=== PATIENT | female | born 1990 | race Caucasian/White ===

== ENCOUNTER 2016-07-20 03:01 | Inpatient (IN) | payer MEDICAID ==
[~2016-07-20] VITALS: Ht 162.6 cm; Wt 131.0 kg
[~2016-07-20 03:01] MED LIST: ALBU18; CITA10TA59; FLUT100M7; FLUT50AE2; LEVA0.31; PREN-145 OR; [UNRECOGNIZED DRUG - OTHER]
[2016-07-20] MEDS ORDERED: ALBUTEROL SULF 2.5 MG/0.5ML(0.5%) NEB SOLN NEB ONE ×2 (03:15→05:00)
[2016-07-20] MEDS ORDERED: IPRATROPIUM BROM 0.5 MG/2.5ML INH SOL NEB ONE ×2 (03:15→05:00)
[2016-07-20 04:02] LABS: Basophils # (auto) 0.1 uL; Basophils % (auto) 0.5 % (0.0-2.0); Eosinophils # (auto) 0.3 uL; Eosinophils % (auto) 2.2 % (0.0-7.0); Hematocrit 45.3 % (36.0-46.0); Hemoglobin 15.1 g/dL (12.2-16.2); Lymphocytes # (auto) 3.1 uL; Lymphocytes % (auto) 23.3 % (10.0-50.0); Mean Corpuscular Hemoglobin 28.1 pg (28.0-32.0); Mean Corpuscular Hgb Conc. 33.4 g/dL (32.0-36.0); Mean Corpuscular Volume 84.1 fL (80.0-100.0); Mean Platelet Volume 8.8 fL (7.4-10.4); Monocytes # (auto) 0.8 uL; Monocytes % (auto) 5.9 % (0.0-12.0); Neutrophils # (auto) 9.1 uL; Neutrophils % (auto) 68.1 % (37.0-80.0); Platelet Count (auto) 306 10^3/uL (140-450); Red Cell Distribution Width 14.5 % (11.6-16.0); White Blood Cell 13.3 10^3/uL (4.4-10.8)
[2016-07-20 04:19] LABS: Albumin 3.6 g/dL (3.4-5.0); BUN/Creatinine Ratio 20.8; Calcium 8.8 mg/dL (8.5-10.1); Potassium 3.4 mmol/L (3.5-5.1)
[2016-07-20 04:21] LABS: Bilirubin, Total 0.7 mg/dL (0.2-1.0); Total Protein 7.5 g/dL (6.4-8.2)
[2016-07-20 04:57] LABS: Urine Bilirubin Negative (Negative); Urine Blood Negative /uL (Negative); Urine Color Yellow (Yellow); Urine Glucose Normal (Normal); Urine Ketone Negative (Negative); Urine Mucus FEW (None Seen); Urine Nitrite Negative (Negative); Urine RBC 2 /hpf (0 - 4); Urine Squamous Epithelial Cell FEW /hpf (<5); Urine Urobilinogen Normal (Negative); Urine pH 5.5 (5.0-8.0)
[2016-07-20] MEDS ORDERED: methylPREDNISolone SOD SUCC 125 MG/2 ML VL IV ONE (05:15)
[2016-07-20] MEDS ORDERED: cefTRIAXone 1GM/50ML D5W 50 ML IV ONE (06:15)
[2016-07-20] MEDS ORDERED: ALBUTEROL SULF 2.5 MG/0.5ML(0.5%) NEB SOLN HHN ONE (07:45)
[2016-07-20] MEDS ORDERED: IPRATROPIUM BROM 0.5 MG/2.5ML INH SOL HHN ONE (07:45)
[2016-07-20] MEDS: SODIUM CHLORIDE 0.9% 1,000 ML IV SCH ×2 (08:34→20:05)
[2016-07-20] MEDS ORDERED: ACETAMINOPHEN 500 MG TAB PO PRN (08:45)
[2016-07-20] MEDS ORDERED: LORazepam 0.5 MG TAB PO PRN (08:45)
[2016-07-20] MEDS ORDERED: HYDROcodone-ACET 5/325MG TAB PO ONE (08:45)
[2016-07-20] MEDS ORDERED: PROMETHAZINE HCL 25 MG/ML 1ML IV PRN (08:45)
[2016-07-20] MEDS ORDERED: ALBUTEROL SULF 2.5 MG/0.5ML(0.5%) NEB SOLN NEB PRN (08:45)
[2016-07-20] MEDS ORDERED: NITROGLYCERIN 0.4 MG SL TAB SL PRN (08:45)
[2016-07-20] MEDS ORDERED: MORPHINE SULF INJ 2 MG/ML SYRINGE 1ML IV PRN ×2 (08:45)
[2016-07-20] MEDS ORDERED: cefTRIAXone 1GM/50ML D5W 50 ML IV SCH (09:00)
[2016-07-20 09:43] VITALS: BP 132/72
[2016-07-20] MEDS: PATIENTS OWN MEDICATION IN SCH ×2 (11:04)
[2016-07-20] MEDS: methylPREDNISolone SOD SUCC 40 MG/ML VL IV SCH ×3 (11:41→23:41)
[2016-07-20] MEDS: CITALOPRAM HYDROBR 20 MG TAB PO SCH (11:42)
[2016-07-20 13:00] VITALS: BP 141/82
[2016-07-20 17:00] VITALS: BP 147/90
[2016-07-20] MEDS ORDERED: THROAT LOZENGES(CEPASTAT) MT PRN (17:45)
[2016-07-20] MEDS: ALBUTEROL SULF 2.5 MG/0.5ML(0.5%) NEB SOLN NEB SCH (17:53)
[2016-07-20] MEDS: IPRATROPIUM BROM 0.5 MG/2.5ML INH SOL NEB SCH (17:53)
[2016-07-20 20:00] VITALS: BP 135/75
[2016-07-20] MEDS: HYDROcodone-ACET 5/325MG TAB PO PRN (20:41)
[2016-07-20 20:48] VITALS: BP 147/90
[2016-07-20] MEDS: TEMAZEPAM 15 MG CAP PO PRN (22:02)
[2016-07-20 23:21] VITALS: BP 135/75
[2016-07-21] MEDS: ALBUTEROL SULF 2.5 MG/0.5ML(0.5%) NEB SOLN NEB SCH ×3 (00:11→13:51)
[2016-07-21] MEDS: IPRATROPIUM BROM 0.5 MG/2.5ML INH SOL NEB SCH ×3 (00:11→13:51)
[2016-07-21] MEDS: TEMAZEPAM 15 MG CAP PO PRN (00:39)
[2016-07-21] MEDS: SODIUM CHLORIDE 0.9% 1,000 ML IV SCH ×2 (04:40→14:34)
[2016-07-21 05:24] LABS: Basophils # (auto) 0 uL; Eosinophils # (auto) 0 uL; Hematocrit 46.4 % (36.0-46.0); Hemoglobin 15.4 g/dL (12.2-16.2); Lymphocytes # (auto) 1.7 uL; Lymphocytes % (auto) 8.8 % (10.0-50.0); Mean Corpuscular Hemoglobin 27.8 pg (28.0-32.0); Mean Corpuscular Hgb Conc. 33.2 g/dL (32.0-36.0); Mean Corpuscular Volume 83.9 fL (80.0-100.0); Mean Platelet Volume 8.9 fL (7.4-10.4); Monocytes # (auto) 0.4 uL; Monocytes % (auto) 1.8 % (0.0-12.0); Neutrophils # (auto) 17.7 uL; Neutrophils % (auto) 89.4 % (37.0-80.0); Platelet Count (auto) 342 10^3/uL (140-450); Red Cell Distribution Width 14.3 % (11.6-16.0); White Blood Cell 19.8 10^3/uL (4.4-10.8)
[2016-07-21 05:39] VITALS: BP 123/61
[2016-07-21 05:49] LABS: Cholesterol 137 mg/dL (< 200); HDL Cholesterol 58 mg/dL (40-59); LDL Cholesterol 116 mg/dL (< 100); Triglycerides 40 mg/dL (< 150)
[2016-07-21] MEDS: methylPREDNISolone SOD SUCC 40 MG/ML VL IV SCH ×2 (05:55→11:44)
[2016-07-21 07:29] VITALS: BP 141/78
[2016-07-21] MEDS: HYDROcodone-ACET 5/325MG TAB PO PRN ×2 (07:47→13:32)
[2016-07-21] MEDS: CITALOPRAM HYDROBR 20 MG TAB PO SCH (08:55)
[2016-07-21] MEDS: PATIENTS OWN MEDICATION IN SCH ×2 (08:56)
[2016-07-21] MEDS ORDERED: cefTRIAXone 1GM/50ML D5W 50 ML IV SCH (09:00)
[2016-07-21 10:59] VITALS: BP 105/52
[2016-07-21 16:10] VITALS: BP 105/59
== END 2016-07-21 16:45 | disposition left against medical advice (07) | DRG 141 ==
LOC: ER 03:01 → TELE 03:02 → TELE-E-ADS 09:46 → TELE-CENTR 11:32
PROVIDERS: ADMIT Internal Medicine; ATTEND Internal Medicine Pulmonary Disease
DX: J45.901 Unspecified asthma with (acute) exacerbation (principal); N39.0 Urinary tract infection, site not specified; D72.829 Elevated white blood cell count, unspecified; Z82.0 Family history of epilepsy and other diseases of the nervous system; Z82.49 Family history of ischemic heart disease and other diseases of the circulatory system; Z83.3 Family history of diabetes mellitus; E66.01 Morbid (severe) obesity due to excess calories; F32.9 Major depressive disorder, single episode, unspecified; Z68.42 Body mass index [BMI] 45.0-49.9, adult; Z90.89 Acquired absence of other organs; Z71.89 Other specified counseling; Z82.61 Family history of arthritis; Z91.02 Food additives allergy status; J20.9 Acute bronchitis, unspecified; Z53.21 Procedure and treatment not carried out due to patient leaving prior to being seen by health care provider
CPT/HCPCS: 36415; 71010; 80053; 80061; 81001; 84702; 85025; 87086; 93005; 94640; 94644; 96374; 96375; J0696

== ENCOUNTER 2016-08-25 15:40 | Emergency (ER) | payer MEDICAID ==
[~2016-08-25] VITALS: Ht 165.1 cm; Wt 127.0 kg
[~2016-08-25 15:40] MED LIST changes: -CITA10TA59; -FLUT100M7; -FLUT50AE2; -PREN-145 OR; -[UNRECOGNIZED DRUG - OTHER]
[2016-08-25 15:57] VITALS: BP 124/77
== END 2016-08-25 17:53 | disposition home or self-care (01) ==
LOC: ER 15:43
DX: S93.401A Sprain of unspecified ligament of right ankle, initial encounter (principal); J45.909 Unspecified asthma, uncomplicated; F12.10 Cannabis abuse, uncomplicated; Z91.018 Allergy to other foods; E66.01 Morbid (severe) obesity due to excess calories; Z68.42 Body mass index [BMI] 45.0-49.9, adult; W19.XXXA Unspecified fall, initial encounter; Y93.89 Activity, other specified; Y99.8 Other external cause status; Y92.89 Other specified places as the place of occurrence of the external cause
CPT/HCPCS: 73610

== ENCOUNTER 2017-03-13 16:11 | Emergency (ER) | payer MEDICAID ==
[~2017-03-13] VITALS: Ht 162.6 cm; Wt 127.5 kg
[2017-03-13 16:41] VITALS: BP 80/9
== END 2017-03-13 19:15 | disposition left against medical advice (07) ==
LOC: ER 16:11
DX: R05 Cough (principal); R06.02 Shortness of breath; Z53.21 Procedure and treatment not carried out due to patient leaving prior to being seen by health care provider

== ENCOUNTER 2017-03-14 10:08 | Emergency (ER) | payer MEDICAID ==
[~2017-03-14] VITALS: Ht 162.6 cm; Wt 127.0 kg
[2017-03-14 12:55] VITALS: BP 128/78
[2017-03-14] MEDS ORDERED: IPRATROPIUM BROM 0.5 MG/2.5ML INH SOL NEB ONE (13:30)
[2017-03-14] MEDS ORDERED: cefTRIAXone 1GM/10ml IVPUSH 10 ML IV ONE (13:30)
[2017-03-14] MEDS ORDERED: cefTRIAXone SOD 1,000 MG VL IM ONE (13:30)
[2017-03-14] MEDS ORDERED: PROMETHAZINE HCL 25 MG/ML 1ML IM ONE (13:30)
[2017-03-14] MEDS ORDERED: ALBUTEROL SULF 2.5 MG/0.5ML(0.5%) NEB SOLN NEB ONE (13:30)
[2017-03-14] MEDS ORDERED: KETOROLAC TROMETH 30 MG/ML 1ML VIAL IV ONE (13:30)
[2017-03-14] MEDS ORDERED: PROMETHAZINE HCL 25 MG/ML 1ML IV ONE (13:30)
[2017-03-14] MEDS ORDERED: methylPREDNISolone SOD SUCC 125 MG/2 ML VL IV ONE (13:30)
[2017-03-14] MEDS ORDERED: methylPREDNISolone SOD SUCC 125 MG/2 ML VL IM ONE (13:30)
[2017-03-14] MEDS ORDERED: KETOROLAC TROMETH 60MG/2ML VIAL IM ONE (13:30)
== END 2017-03-14 14:26 | disposition home or self-care (01) ==
LOC: ER 10:08
DX: J40 Bronchitis, not specified as acute or chronic (principal); J32.9 Chronic sinusitis, unspecified; G43.909 Migraine, unspecified, not intractable, without status migrainosus
CPT/HCPCS: 71046; 94640; 96374; 96375; 99284; J1885; J2550; J2930; J7030

== ENCOUNTER 2019-11-22 08:47 | Inpatient (IN) | payer MEDICAID ==
[2019-11-22] VITALS (12 sets, daily range): BP systolic 113–164; BP diastolic 53–94
[~2019-11-22] VITALS: Ht 162.6 cm; Wt 124.7 kg
[2019-11-22] MEDS ORDERED: LACT. RINGERS/OXYTOCIN 20UNITS 1,000 ML IV SCH (09:35)
[2019-11-22] MEDS ORDERED: AZITHROMYCIN 250 MG TAB PO ONE (09:45)
[2019-11-22] MEDS ORDERED: cefTRIAXone SODIUM 250 MG VL IM ONE (09:45)
[2019-11-22] MEDS ORDERED: PHISODERM TOP SOLN 240ML BTL TOP PRN (09:45)
[2019-11-22] MEDS ORDERED: DERMOPLAST 60ML BOTTLE TOP PRN (09:45)
[2019-11-22] MEDS ORDERED: METHYLERGONOVINE MALEATE 0.2 MG/ML AMP IM PRN (09:45)
[2019-11-22] MEDS ORDERED: WITCH HAZEL-GLYCERIN PAD TOP PRN (09:45)
[2019-11-22] MEDS ORDERED: LIDOCAINE 2%HCL (LOCAL ANESTH.) INJ 20ML MDV ID ONE (09:45)
[2019-11-22 10:27] LABS: Basophils # (auto) 0.1 10 ^3/uL (0-0.2); Basophils % (auto) 0.9 % (0.0-2.0); Eosinophils # (auto) 0.1 10 ^3/uL (0-0.8); Eosinophils % (auto) 1.1 % (0.0-7.0); Hematocrit 41.4 % (36.0-46.0); Lymphocytes # (auto) 2.4 10 ^3/uL (0.4-5.4); Lymphocytes % (auto) 21.3 % (10.0-50.0); Mean Corpuscular Hemoglobin 29.6 pg (28.0-32.0); Mean Corpuscular Hgb Conc. 33.8 g/dL (32.0-36.0); Mean Corpuscular Volume 87.5 fL (80.0-100.0); Monocytes # (auto) 0.7 10 ^3/uL (0-1.3); Monocytes % (auto) 6.2 % (0.0-12.0); Neutrophils # (auto) 7.8 10 ^3/uL (1.6-8.6); Neutrophils % (auto) 70.5 % (37.0-80.0); Nucleated Red Blood Cells % 0.1 %; Platelet Count (auto) 313 10^3/uL (140-450); Red Blood Cells 4.73 10^6/uL (4.0-5.20); Red Cell Distribution Width 13.4 % (11.8-14.3)
[2019-11-22 10:42] LABS: INR 0.94 (0.9-1.15); Partial Thromboplastin Time 29.4 sec (23.0-31.2)
[2019-11-22 10:48] LABS: Urine Bacteria FEW /hpf (None Seen); Urine Blood Negative /uL (Negative); Urine Mucus FEW (None Seen); Urine Specific Gravity 1.031 (1.001-1.035); Urine WBC 16 /hpf (0 - 5)
[2019-11-22 10:49] LABS: Albumin 2.7 g/dL (3.4-5.0); Calcium 8.8 mg/dL (8.5-10.1); Potassium 3.9 mmol/L (3.5-5.1)
[2019-11-22 10:55] LABS: BUN/Creatinine Ratio 24.5; Bilirubin, Total 0.6 mg/dL (0.2-1.0); Total Protein 7.2 g/dL (6.4-8.2)
[2019-11-22] MEDS: LACTATED RINGER'S 1,000 ML IV SCH ×3 (11:00→18:06)
[2019-11-22 11:39] LABS: Alcohol, Urine < 3.0 mg/dL (0-10); Amphetamine Screen, Urine NEGATIVE (NEGATIVE); Barbiturate Scree,Urine NEGATIVE (NEGATIVE); Benzodiazephine Screen, Urine NEGATIVE (NEGATIVE); Cannabinoid Screen, Urine POSITIVE (NEGATIVE); Cocaine Screen, Urine NEGATIVE (NEGATIVE)
[2019-11-22 11:46] LABS: Opiate Scree,Urine NEGATIVE (NEGATIVE); Phencyclidine Screen, Urine NEGATIVE (NEGATIVE)
[2019-11-22] MEDS ORDERED: MORPHINE SULF(PF) 0.5MG/ML 10ML VIAL ONE (12:19)
[2019-11-22] MEDS ORDERED: fentaNYL CITRATE 100 MCG/2 ML VL ONE (12:19)
[2019-11-22] MEDS ORDERED: SUCCINYLCHOLINE CHLORIDE 20 MG/ML 10ML VIAL IV ONE (12:35)
[2019-11-22] MEDS ORDERED: LACT. RINGERS/OXYTOCIN 20UNITS 1,000 ML IV ONE (12:51)
[2019-11-22] MEDS ORDERED: ceFAZolin 1GM/50ML 50 ML IV SCH (13:00)
[2019-11-22] MEDS ORDERED: ONDANSETRON HCL 4 MG/2 ML VIAL IV PRN (13:00)
[2019-11-22] MEDS ORDERED: GUM (CHEWING) 1 GUM CHEW CHEW ONE (13:00)
[2019-11-22] MEDS ORDERED: oxyTOCIN 10 UNIT/ML 10ML VIAL ONE (13:45)
[2019-11-22] MEDS ORDERED: ceFAZolin 1GM VL ONE (13:45)
[2019-11-22] MEDS ORDERED: AMPICILLIN INJ 1 GM in SODIUM CHL 0.9% 50 ML IV SCH (14:00)
[2019-11-22] MEDS ORDERED: NALBUPHINE HCL 10 MG/1ml INJECTION SUBCUT ONE (14:15)
[2019-11-22] MEDS ORDERED: NALOXONE HCL 0.4 MG/ML VIAL IV PRN (14:15)
[2019-11-22] MEDS ORDERED: FAMOTIDINE (10MG/ML) 2ML VL IV ONE ×2 (14:15→14:18)
[2019-11-22] MEDS ORDERED: HYDROmorphone HCL 2 MG/ML VL IV PRN (14:15)
--- NOTE | 2019-11-22 14:45 | NUR ---
SBAR received from Gracie in PACU. Patient brought to room 7B via bed. Assessment completed, vital signs per policy started, IV patent, tubing placed in pump and started per order, SCD's on BLE, placed on machine working properly. Educated patient on purpose of SCD's to prevent blood clots. Verbalized understanding. IS given, educated on purpose/procedure/ use 10x hour to prevent pneumonia. Verbalized understanding of all information. Orientated to room. Call light in reach. Sd rails up x2. bed low. Updated on plan of care, orders, NPO except ice chips. No distress noted.
--- NOTE | 2019-11-22 15:05 | NUR ---
Patient complain of pain. See emar. Educated on medication. Verbalized understanding.
[2019-11-22] MEDS: MORPHINE SULFATE 4 MG/ML SYR/VIAL IV PRN ×2 (15:09→20:44)
[2019-11-22] MEDS ORDERED: ACETAMINOPHEN IV 1000 MG/100ML (10MG/ML) IV PRN (16:15)
[2019-11-22] MEDS: ceFAZolin 1GM/50ML 50 ML IV SCH (20:43)
[2019-11-23 00:24] LABS: Basophils # (auto) 0 10 ^3/uL (0-0.2); Basophils % (auto) 0.1 % (0.0-2.0); Eosinophils # (auto) 0.1 10 ^3/uL (0-0.8); Eosinophils % (auto) 0.6 % (0.0-7.0); Hematocrit 40.1 % (36.0-46.0); Hemoglobin 13.1 g/dL (12.2-16.2); Lymphocytes # (auto) 2.7 10 ^3/uL (0.4-5.4); Mean Corpuscular Hemoglobin 29.1 pg (28.0-32.0); Mean Corpuscular Hgb Conc. 32.5 g/dL (32.0-36.0); Mean Corpuscular Volume 89.5 fL (80.0-100.0); Monocytes # (auto) 0.7 10 ^3/uL (0-1.3); Monocytes % (auto) 5.1 % (0.0-12.0); Neutrophils # (auto) 10.5 10 ^3/uL (1.6-8.6); Neutrophils % (auto) 75.2 % (37.0-80.0); Platelet Count (auto) 286 10^3/uL (140-450); Red Blood Cells 4.48 10^6/uL (4.0-5.20); Red Cell Distribution Width 13.6 % (11.8-14.3)
--- NOTE | 2019-11-23 03:15 | NUR ---
Ambulation: Pericare performed. Patient OOB with standby assistance by RN. Patient ambulated down hallway to LDR 1 and back. Clean gown provided and bed linen changed. Patient ambulated back to bed with steady gait and no distress noted.
[2019-11-23 03:30] VITALS: BP 122/69
[2019-11-23] MEDS: LACTATED RINGER'S 1,000 ML IV SCH ×3 (05:00→17:27)
[2019-11-23] MEDS: ceFAZolin 1GM/50ML 50 ML IV SCH ×2 (05:00→13:13)
--- NOTE | 2019-11-23 05:15 | NUR ---
Schneider catheter dc'd Order to discontinue schneider catheter. Schneider dc'd with clean technique following deflation of balloon. Patient tolerated well with no complaints of pain. Continue care.
[2019-11-23 07:04] VITALS: BP 122/66
[2019-11-23 07:06] LABS: RPR Non Reactive (Non Reactive)
[2019-11-23 07:28] LABS: Basophils # (auto) 0 10 ^3/uL (0-0.2); Basophils % (auto) 0.1 % (0.0-2.0); Eosinophils # (auto) 0.1 10 ^3/uL (0-0.8); Eosinophils % (auto) 1.2 % (0.0-7.0); Hematocrit 38.9 % (36.0-46.0); Hemoglobin 13.1 g/dL (12.2-16.2); Lymphocytes # (auto) 2.4 10 ^3/uL (0.4-5.4); Lymphocytes % (auto) 21.4 % (10.0-50.0); Mean Corpuscular Hemoglobin 29.7 pg (28.0-32.0); Mean Corpuscular Hgb Conc. 33.6 g/dL (32.0-36.0); Mean Corpuscular Volume 88.2 fL (80.0-100.0); Monocytes # (auto) 0.7 10 ^3/uL (0-1.3); Monocytes % (auto) 5.9 % (0.0-12.0); Neutrophils # (auto) 8.2 10 ^3/uL (1.6-8.6); Neutrophils % (auto) 71.4 % (37.0-80.0); Platelet Count (auto) 256 10^3/uL (140-450); Red Blood Cells 4.41 10^6/uL (4.0-5.20); Red Cell Distribution Width 13.2 % (11.8-14.3); White Blood Cell 11.4 10^3/uL (4.4-10.8)
[2019-11-23] MEDS: MORPHINE SULFATE 4 MG/ML SYR/VIAL IV PRN (07:41)
[2019-11-23] MEDS ORDERED: HYDROcodone-ACET 5/325MG TAB PO PRN (10:00)
[2019-11-23] MEDS ORDERED: DOCUSATE SOD 100 MG CAP PO SCH (10:00)
[2019-11-23 11:04] VITALS: BP 118/60
[2019-11-23] MEDS: DOCUSATE CALCIUM 240 MG CAP PO SCH (11:17)
[2019-11-23] MEDS: HYDROcodone-ACET 5/325MG TAB PO PRN ×2 (11:21→17:50)
[2019-11-23] MEDS: SIMETHICONE 80 MG CHEWABLE TABLET PO SCH ×3 (13:13→22:18)
[2019-11-23] MEDS: IBUPROFEN 800 MG TAB PO PRN ×2 (13:17→22:18)
[2019-11-23 15:30] VITALS: BP 125/65
[2019-11-23] MEDS ORDERED: PREN-96 PO (17:29)
[2019-11-23 18:59] VITALS: BP 134/48
[2019-11-23] MEDS ORDERED: TETANUS-DIPTH-ACEL PERTUSSIS 0.5ML SYR Tdap IM ONE (22:00)
[2019-11-23] MEDS: BISACODYL 10 MG RECT SUPP PR PRN (22:18)
[2019-11-23 23:00] VITALS: BP 101/42
[2019-11-24] VITALS (7 sets, daily range): BP systolic 116–130; BP diastolic 59–91
[2019-11-24] MEDS: HYDROcodone-ACET 5/325MG TAB PO PRN ×4 (00:20→22:31)
[2019-11-24] MEDS: SIMETHICONE 80 MG CHEWABLE TABLET PO SCH ×4 (05:38→22:32)
[2019-11-24] MEDS: IBUPROFEN 800 MG TAB PO PRN ×2 (06:41→17:42)
--- NOTE | 2019-11-24 07:53 | NUR ---
Dr. Dorantes at [facility]. Addendum: 11/24/19 at 0754 by Jason Brown RN Amended: Links added.
[2019-11-24] MEDS: DOCUSATE CALCIUM 240 MG CAP PO SCH (09:36)
--- NOTE | 2019-11-24 11:30 | NUR ---
ORTHOPEDIC RADIOLOGIC TECHNOLOGIST TOMER AT PATIENTS BEDSIDE TO TALK TO PATIENT.
--- NOTE | 2019-11-24 11:50 | NUR ---
LUL MEJIA states they want to leave the floor Against Medical Advice (AMA) to go outside and smoke. Patient encouraged to stay on floor and not smoke. Dr. Dorantes notified of patient's wishes. Patient advised of the risks and benefits of leaving AMA. Patient verbalized understanding and signed required AMA form.
--- NOTE | 2019-11-24 12:23 | NUR ---
Infant in room with FOB
--- NOTE | 2019-11-24 12:34 | NUR ---
patient back in room in stable condition.
--- NOTE | 2019-11-24 19:20 | NUR ---
IV removal IV DC'd with sterile technique, catheter fully intact. Pressure dressing applied to site. Patient tolerated procedure well. Discharged with aftercare instructions per MD. NOTE:
[2019-11-24] MEDS: BISACODYL 10 MG RECT SUPP PR PRN (22:31)
[2019-11-25 03:00] VITALS: BP 115/57
[2019-11-25] MEDS: IBUPROFEN 800 MG TAB PO PRN ×2 (03:04→10:08)
--- NOTE | 2019-11-25 05:15 | NUR ---
Pt called nurse's station crying and asking for her nurse. RN enters room and finds pt sitting on the side of the bed crying hysterically. Pt states that she awoke from a really bad dream that felt very real to her. Pt declined to talk with RN about the dream. Pt asked for a bottle for the infant and if she could go smoke after she finished feeding the . When RN returned with bottle, pt still crying and continued to decline to talk about the dream.
[2019-11-25] MEDS: SIMETHICONE 80 MG CHEWABLE TABLET PO SCH (05:35)
[2019-11-25 06:45] VITALS: BP 109/68
--- NOTE | 2019-11-25 07:51 | NUR ---
Received in report that patient has been displaying erratic behavior and hysterical crying most of the material handler 2nd shift prior. Patient's family member placed call to nurses station stating "they believe she has depression". Patient seen crying outside by multiple staff members crying this morning. Call placed to provider personal carer noting the behavior and request for Telepsych for further evaluation before patient is discharged. Dr. Kline gave orders for Telepsych consult, will carry out.
--- NOTE | 2019-11-25 09:05 | NUR ---
Assessment Patient is a 29-year old female who is alert and oriented. Social Service consult regarding THC positive and no care. Baby drug screen tested positive. Patient stated she consumed THC due to nausea and back pain. Patient stated she did take her . Patient stated she was out of town for two months helping a friend and during that time she did not see her doctor but continue to take her care. Baby father Dick was at bedside when speaking to patient. Patient resides with baby father Dick and will assistance with baby upon discharge. Patient has all supplies as well as car seat for baby and will be bottle fed. Patient has medical insurance for herself and baby and will be following up with provider appt post discharge. Patient has transportation home upon discharge. Due to baby being positive for THC, CPS will be contact. Spoke to Naye with CPS. CPS case is [id number].
--- NOTE | 2019-11-25 09:19 | NUR ---
Telepsych computer set up and brought into patient's room for consultation. Ensured patient verbalized understanding of reason for consultation and answered all questions at this time. Verified that computer sound, microphone and camera working properly before exiting room. Informed patient to call nurses station if any interruptions or problems with the computer during consultation.
[2019-11-25] MEDS: DOCUSATE CALCIUM 240 MG CAP PO SCH (10:09)
--- NOTE | 2019-11-25 10:15 | NUR ---
Spoke with Gabriella Fink on computer in patient's room. He states patient is denying psychiatric medications at this time and is cleared for discharge per his assessment. Patient has been encouraged to discontinue any substance abuse and to follow up for any symptoms of depression/anxiety. Doctor states he will send his full report to [facility] fax.
[2019-11-25 11:15] VITALS: BP_SYST 129; BP_DIAS 29; BP_DIAS 69
--- NOTE | 2019-11-25 11:36 | NUR ---
Discharge: Discharge instructions given as ordered. Pt encouraged to follow up with REHABILITATION CASEWORKER as instructed. All questions and concerns addressed. Reinforced signs/symptoms of PPD with patient and community resource for maternal mental health given to patient. Patient verbalized understanding and states she understands when to seek help. Medication reconciliation completed and copy given to patient. All required/requested vaccines given and copies of vaccinations given to patient. Patient encouraged to prepare to depart unit.
--- NOTE | 2019-11-25 11:37 | NUR ---
Patient complains of headache unrelieved by previous analgesic medication. Patient declines any pain medication, cold compress or water at this time. Blood pressure taken before discharge and was 129/69. Patient accompanied by mother and ambulates with steady gait. Patient A/O x4 and verbalizes understanding of all discharge teaching and follow up instructions.
--- NOTE | 2019-11-25 11:52 | NUR ---
Discharge: Patient taken to vehicle via wheelchair with all personal belongings, accompanied by staff and family member. No distress noted at time of departure, no adverse changes in status since initial assessment.
== END 2019-11-25 11:52 | disposition home or self-care (01) | DRG 540 ==
LOC: LDRP 08:47 → OBSVTOIN 09:30 → LDRP 09:31
PROVIDERS: ADMIT Obstetrics & Gynecology; ATTEND Obstetrics & Gynecology
PROC: 10D00Z1 Extraction of Products of Conception, Low, Open Approach (ICD-10-PCS; principal; 2019-11-22 12:50)
DX: O98.22 Gonorrhea complicating childbirth (principal); O98.32 Other infections with a predominantly sexual mode of transmission complicating childbirth; Z3A.38 38 weeks gestation of pregnancy; Z37.0 Single live birth; Z20.828 Contact with and (suspected) exposure to other viral communicable diseases; Z91.018 Allergy to other foods; A56.8 Sexually transmitted chlamydial infection of other sites
CPT/HCPCS: 36415; 59025; 76805; 80053; 80307; 81001; 81002; 84112; 84550; 85025; 85610; 85730; 86592; 86703; 86762; 86850; 86900; 86901; 87340; 87426; 90715; 94762; 96372; 96374; 96375; G0378; J0131; J0330; J0690; J0696; J2405; J2590; J3490